=== PATIENT | male | born 1985 | race Caucasian/White ===

== ENCOUNTER → 2016-09-20 | Outpatient (CLI) | payer OTHER ==
--- NOTE | 2016-09-20 11:18 | REP ---
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 Comparison radiographs August 05, 2016. Question osteomyelitis. Gadolinium enhancement dose: 16 ml of intravenous ProHance is administered. MR technique: Sagittal, axial and coronal imaging planes utilized. T1 and T2-weighted scans obtained in the usual fashion with and without fat saturation. MRI findings: Cortical and medullary bone signal intensity are normal on T1 and T2-weighted scans in the metatarsals and phalanges of all five digits. There is no MR evidence to suggest osteomyelitis. There is some diffuse edema in the volar aspect of the forefoot laterally. No soft tissue abscess is seen. No sinus tract is visualized. Post gadolinium enhanced images show no abnormal gadolinium enhancement within bony structures. There is some diffuse soft tissue enhancement in the edematous areas. Impression: No MR evidence of osteomyelitis or soft tissue abscess. Signed by Sravan Parmar MD 09/20/2016 02:32 P
== END ==
LOC: EEVIPCON 09-09 10:00 → M RAD 09:17
PROVIDERS: ATTEND Surgery
DX: L97.523 Non-pressure chronic ulcer of other part of left foot with necrosis of muscle (principal)

== ENCOUNTER → 2017-06-13 | Outpatient (REF) | payer MEDICAID, OTHER, SELFPAY | LOC: M SMT 13:00 | PROVIDERS: ATTEND Nurse Practitioner Women's Health | DX: R31.29 Other microscopic hematuria (principal) ==

== ENCOUNTER → 2017-07-25 | Outpatient (REF) | payer MEDICAID ==
[2017-07-25 12:00] LABS: INR 0.88
[2017-07-25 12:09] LABS: ALBUMIN 4.3 GM/DL (3.2-5.2); ALBUMIN/GLOBULIN RATIO 1.3 (1.00-1.93); BILIRUBIN,DIRECT 0.2 MG/DL (0.0-0.2); BILIRUBIN,TOTAL 0.8 MG/DL (0.2-1.0); TOTAL PROTEIN 7.6 GM/DL (6.4-8.2)
[2017-07-29 00:06] LABS: HEPATITIS C QUANTITATION HCV Not Detected IU/mL (.)
== END ==
LOC: M SFHCPLAZ 10:01
PROVIDERS: ATTEND Family Medicine
DX: K70.30 Alcoholic cirrhosis of liver without ascites (principal); Z86.19 Personal history of other infectious and parasitic diseases

== ENCOUNTER → 2017-08-08 | Outpatient (CLI) | payer MEDICAID ==
[~2017-08-08] MED LIST: ISOVUE-370 76% 100ML VIAL (Q9967) As Ordered ONE
--- NOTE | 2017-08-08 15:59 | REP ---
CT abdomen and pelvis without and with contrast: 08/08/2017. Clinical history: Microscopic hematuria. Bilateral hydronephrosis. Technique: Noncontrast scanning followed by bolus of 100 mL of Isovue 370 with scanning in equilibrium and delayed phases. Coronal and sagittal reconstructions for the delayed scan and a 3-D surface rendering curved reformat for CT urogram. Findings: CT abdomen and pelvis: There is no ventral or inguinal hernia nor pathologic sized inguinal adenopathy, or pelvic mass. I see no abdominal or pelvic adenopathy, ascites. The aorta intact. No periaortic or retroperitoneal pathologic sized lymphadenopathy. Bone windows show lumbar and lower thoracic spine and posterior elements intact. Visualized ribs intact. Lung bases were clear. Heart is not enlarged. There is no pericardial thickening or effusion. Small hiatal hernia. Liver, spleen, gallbladder, pancreas and adrenal glands are normal. There is ptosis of the right kidney compared to the left. In the lower pole on the right side there is a nonobstructing 8 mm renal stone. Left kidney shows no stone. There is no hydroureter on either side. No ureteral stone on either side. Bladder is without wall thickening, stone or mass. No perinephric edema. Kidneys enhance in a symmetric fashion. They show no solid or cystic mass. No perinephric fluid. More of the distal left ureter than right is visible, but neither were dilated and neither showed stone or mass. Stool and gas are scattered in the colon without signs of obstruction, colitis or diverticulitis. Small bowel loops were intact. Lung window review of all CT images abdomen and pelvis show no perforation or free air. Impression: 1. There is a nonobstructing stone 8 mm lower pole melissa on the right without hydronephrosis, hydroureter, ureteral stone or bladder calculus on either side.2. Normal enhancement for both kidneys without mass. 3. Solid organs in the upper abdomen, gallbladder, small bowel loops, colon. Pelvic organs grossly unremarkable. 4. No ascites, adenopathy or free air. Bones intact. Signed by Akbar Schofield MD 08/08/2017 08:35 P
== END ==
LOC: M RAD 13:17
PROVIDERS: ATTEND Nurse Practitioner Women's Health
DX: R31.29 Other microscopic hematuria (principal)
CPT/HCPCS: 74178; Q9967

== ENCOUNTER 2017-10-09 15:23 | Emergency (ER) | payer MEDICAID ==
[2017-10-09] MEDS: IBUPROFEN 800 MG TAB PO (18:30)
== END 2017-10-09 18:44 | disposition home or self-care (01) ==
LOC: M ED 15:23
DX: S60.222A Contusion of left hand, initial encounter (principal); W27.0XXA Contact with workbench tool, initial encounter; Y92.018 Other place in single-family (private) house as the place of occurrence of the external cause; F17.210 Nicotine dependence, cigarettes, uncomplicated
CPT/HCPCS: 73130

== ENCOUNTER 2024-09-09 07:56 | Emergency (ER) | payer MEDICAID ==
[~2024-09-09] VITALS: Ht 180.3 cm; Wt 81.8 kg
[~2024-09-09 07:56] MED LIST changes: +IBUP-1022 PO; -ISOVUE-370 76% 100ML VIAL (Q9967) As Ordered ONE; +NAPR-885
[2024-09-09 09:30] VITALS: BP 98/55; TEMP 97.6; O2SAT 97
== END 2024-09-09 10:56 | disposition left against medical advice (07) ==
LOC: EDBD 07:56 → M ED 07:56
DX: Z53.21 Procedure and treatment not carried out due to patient leaving prior to being seen by health care provider (principal)

== ENCOUNTER 2024-11-28 08:03 | Emergency (ER) | payer MEDICAID ==
[~2024-11-28] VITALS: Ht 180.3 cm; Wt 82.7 kg
[2024-11-28 08:50] VITALS: TEMP 97
[2024-11-28] MEDS: KETOROLAC 60MG 2ML VIAL IM ONE (08:51)
[2024-11-28] MEDS: LIDOCAINE 5% (LIDODERM) PATCH TD ONE (08:51)
[2024-11-28] MEDS ORDERED: NAPR-837 PO (10:01)
[2024-11-28] MEDS ORDERED: LIDO5DIS41 TD (10:01)
[2024-11-28 10:21] VITALS: BP 113/57; O2SAT 97
== END 2024-11-28 10:22 | disposition home or self-care (01) ==
LOC: M ED 08:03
DX: M62.830 Muscle spasm of back (principal); M67.823 Other specified disorders of tendon, right elbow; F17.210 Nicotine dependence, cigarettes, uncomplicated; Z79.899 Other long term (current) drug therapy
CPT/HCPCS: 96372; 99283; J1885